=== PATIENT | male | born 1945 | race Hispanic/Latino ===

== ENCOUNTER 2024-01-07 13:42 | Emergency (ER) | payer OTHER, SELFPAY ==
[2024-01-07 13:43] VITALS: BP 151/89
[2024-01-07 14:09] LABS: % Basophils 0.3 % (0-2); % Eosinophils 0.2 % (0-6); % Immature Granulocytes 1.3 % (0-0.5); % Monocytes 8.6 % (1.7-9.3); % Neutrophils 81.6 % (42.2-75.2); Absolute Immature Granulocytes 0.1 10^3/uL (0-0.05); Absolute Lymphocytes 0.9 10^3/uL (1.2-3.4); Absolute Monocytes 0.9 10^3/uL (0.1-0.6); Absolute Neutrophils 8.7 10^3/uL (1.4-6.5); Hematocrit 29.4 % (39.0-52.0); Hemoglobin 10.6 g/dL (13.0-18.0); Mean Corp Hgb Conc. 36.1 g/dL (33.0-37.0); Mean Corpuscular Hgb 38.1 pg (27.0-31.0); Mean Corpuscular Volume 105.8 fL (80.0-94.0); Nucleated Red Blood Cells % 0 % (-); Platelet Count 102 10^3/uL (130-400); Red Blood Cell Count 2.78 10^6/uL (4.70-6.10); Red Cell Dist. Width 14.8 % (11.5-14.5); White Blood Cell Count 10.7 10^3/uL (4.8-10.8)
[2024-01-07 14:14] LABS: ALT (SGPT) 41 U/L (0-50); AST (SGOT) 76 U/L (17-59); Albumin 2.6 g/dl (3.5-5.0); Alkaline Phosphatase 116 U/L (38-126); Blood Urea Nitrogen 26 mg/dl (9-20); Carbon Dioxide 20 mmol/L (22-30); Chloride 107 mmol/L (98-107); Glucose 98 mg/dl (70-99); Potassium 4.3 mmol/L (3.5-5.1); Sodium 131 mmol/L (135-145); Total Bilirubin 1.8 mg/dl (0.2-1.3); Total Protein 6.1 g/dl (6.3-8.2); eGFR 56.93
[2024-01-07 15:33] VITALS: BMI 27.5
[2024-01-07 15:34] VITALS: BP 154/90
--- NOTE | 2024-01-07 16:46 | ED.GENMED ---
Addendum entered and electronically signed by Juan Luis Banks PA-C 01/08/24 11:59:
1 of 2 tubes positive for gram-positive cocci in clusters. Patient tested positive for influenza. Suspect this is likely contaminated specimen. Will wait for final cultures.
Original Note:
History of Present Illness
General
Chief Complaint: Breathing Problem
Time Seen by Provider: 01/07/24 15:33
Travel History
Have you had any contact with someone who has COVID-19?: No
Do you have any symptoms of coronavirus? Fever > 100 degrees, chills, cough, shortness of breath, sore throat, loss of taste or smell, muscle aches, or headache?: Yes
Symptoms:: fever
History of Present Illness
History of Present Illness:
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 Was noted to be febrile and
weak this morning as well. Had a recent admission to [facility] due to cirrhosis with ascites, underwent paracentesis approximately 1 week ago that was negative for SBP. I was able to review records on the patient's portal through
[facility]. Patient denies any chest pain or leg swelling at this time. Denies any shortness of breath currently but is worse at nighttime while lying flat. He is anticoagulated due to a recent history of a DVT, has been compliant with
this
Review of Systems
Review of Systems
Allergies reviewed?: Yes
All Other Systems: ROS reviewed and negative except as documented in HPI and ROS
Phy Exam
Physical Exam
Physical Exam:
GEN: Well appearing, NAD, WDWN
Eyes: PERRLA, EOMs intact, no scleral icterus
HENT: NCAT, oral mucosa moist, no JVD, no cervical adenopathy.
Lungs: Normal respiratory effort, mild wheezing heard at the bases with expiration, no rales or rhonchi
Cardiac: RRR, no M/R/G, no peripheral edema. Radial pulses 2+ bilat
Abdomen: Protuberant abdomen, nontender, nonrigid
Neuro: AO x 3
MSK: No gross deformity or ecchymosis. No edema. No digital clubbing
Skin: No rashes, petechiae. Normal color, no pallor or jaundice.
Psych: Calm, cooperative, proper hygiene
Scores
Heart Failure Risk
Heart Failure Risk Score: Not Applicable
Course
Orders/Labs/Results
Orders:
Orders
01/07/24 13:49
CXR2 [CR Chest - 2 Views ] Urgent
Comment:
Reason For Exam: SOB
01/07/24 13:53
CMP [Comprehensive Metabolic Panel] Urgent
Complete Blood Count/With Diff Urgent
01/07/24 16:11
Ipratropium/Albuterol Sulfate [Duoneb] 3 ml INH R NOW ONE
01/07/24 16:43
Ammonia Urgent
COVID-19 Antigen Urgent
Source: Nasal Swab
Prothrombin Time Urgent
Blood Culture Q30M
RAYMUNDO Source: Blood/Venous
Specimen Description:
Blood Culture Q30M
RAYMUNDO Source: Blood/Venous
Specimen Description:
Influenza A+B Rapid Molecular Urgent
[email or web address] Source: Nasal Swab
Specimen Description:
Abnormal Lab Results
01/07/24 01/07/24
13:53 16:43
RBC 2.78 L 10^6/uL
(4.70-6.10)
Hgb 10.6 L g/dL
(13.0-18.0)
Hct 29.4 L %
(39.0-52.0)
MCV 105.8 H fL
(80.0-94.0)
MCH 38.1 H pg
(27.0-31.0)
RDW 14.8 H %
(11.5-14.5)
Plt Count 102 L 10^3/uL
(130-400)
MPV 11.0 H fL
(7.4-10.4)
Abs Immat Gran (auto) 0.1 H 10^3/uL
(0-0.05)
Absolute Neuts (auto) 8.7 H 10^3/uL
(1.4-6.5)
Absolute Lymphs (auto) 0.9 L 10^3/uL
(1.2-3.4)
Absolute Monos (auto) 0.9 H 10^3/uL
(0.1-0.6)
Immature Gran % 1.3 H %
(0-0.5)
Neutrophils % 81.6 H %
(42.2-75.2)
Lymphocytes % 8.0 L %
(20.5-51.1)
PT 19.0 H Sec
(11.4-14.6)
Sodium 131 L mmol/L
(135-145)
Carbon Dioxide 20 L mmol/L
(22-30)
BUN 26 H mg/dl
(9-20)
Calcium 8.0 L mg/dl
(8.4-10.2)
Total Bilirubin 1.8 H mg/dl
(0.2-1.3)
AST 76 H U/L
(17-59)
Ammonia 59 H umol/L
(9-30)
Total Protein 6.1 L g/dl
(6.3-8.2)
Albumin 2.6 L g/dl
(3.5-5.0)
01/07/24 13:53
01/07/24 13:53
Vital Signs
Initial and Last Documented VS:
Initial Vital Signs
Temp Pulse Resp BP Pulse Ox
99.1 F 95 20 151/89 95
01/07/24 13:43 01/07/24 13:43 01/07/24 13:43 01/07/24 13:43 01/07/24 13:43
Last Documented Vital Signs
Temp Pulse Resp BP Pulse Ox
100.0 F 94 19 134/77 96
01/07/24 15:34 01/07/24 18:26 01/07/24 15:34 01/07/24 18:26 01/07/24 18:26
MDM/Problems Addressed
MDM/Problems Addressed:
78-year-old male presents with fever and shortness of breath. Lungs are relatively clear on exam he exhibits no increased work of breathing. Tested positive for influenza, chest x-ray reveals no evidence for bacterial pneumonia. Patient's labs
are reassuring, do not suspect PE despite his recent hospitalization given the use of anticoagulants. Patient is not a candidate for Tamiflu given symptom onset greater than 48 hours coupled with liver failure, as there is no evidence of medication
safety in the setting of cirrhosis. Patient is clinically stable from a respiratory standpoint suitable for discharge home
*Critical Care Note
Total Time (30-74mins, 75-104mins- exclusive of procedures): Not Applicable
ED Attending Note
-
Portions of this chart may have been created with voice recognition software.� Occasional wrong word or��sound alike� substitutions may have occurred due to the inherent limitations of voice recognition software.
Discharge Plan
Departure
Patient Disposition: Home (Routine Discharge)
Date of Disposition: 01/07/24
Time of Disposition: 17:46
Patient with high blood pressure during this ER visit?: No
Discharge Problem:
Influenza A
Instructions: Flu, Adult (DC)
Prescriptions:
New
albuterol sulfate [ProAir HFA] 90 mcg/actuation HFA aerosol inhaler
1 puff inhalation Q4HPRN PRN (Reason: shortness of breath) Qty: 6.7 0RF
benzonatate 100 mg capsule
100 mg PO TID PRN (Reason: Cough) Qty: 20 0RF
No Action
Eliquis DVT-PE Treat 30D Start 5 mg (74 tabs) tablets,dose pack
See Rx Instructions .ROUTE .COMPLEX Qty: 74 0RF
Rx Instructions:
orally per package directions
cephalexin 500 mg capsule
500 mg PO QID 7 Days Qty: 28 0RF
Referrals:
Calixto Oswald MD [Family Provider] -
Interventions
Interventions:
*Risk Screen - Suicide Last Done: 01/07/24 17:10
*General Assessment Last Done: 01/07/24 13:43
*Neglect/Abuse Screening Last Done: 01/07/24 17:10
ED- Fall Risk Assessment Last Done: 01/07/24 18:26
*ED COVID-19 Vaccine History Last Done: 01/07/24 13:43
*Nursing Disposition Last Done: 01/07/24 18:26
ED- Cardiac Assessment Last Done: 01/07/24 15:37
ED- Pulmonary Assessment Last Done: 01/07/24 15:37
Discharge Date and Time
Discharge Date/Time: 01/07/24 18:01
[2024-01-07] MEDS: DUONEB 3 ML INH (16:47)
[2024-01-07 17:10] LABS: INR 1.62
[2024-01-07 17:11] LABS: Ammonia 59 umol/L (9-30)
[2024-01-07 17:30] LABS: COVID-19 Antigen Negative (Negative)
[2024-01-07 18:26] VITALS: BP 134/77
== END 2024-01-07 18:01 | disposition home or self-care (01) ==
LOC: EMR 13:42
PROVIDERS: Emergency Medicine; Physician Assistant; EMERGENCY PHYSICIAN Emergency Medicine; FAMILY PHYSICIAN Internal Medicine
DX: J10.1 Influenza due to other identified influenza virus with other respiratory manifestations (principal)
CPT/HCPCS: 99283; 94640; 71046; 80053; 82140; 85025; 85610; 87040; 87150; 87205; 87502; 87811